=== PATIENT | female | born 1985 ===

== ENCOUNTER 2022-01-05 13:54 | Inpatient (IN) ==
[2022-01-05] MEDS ORDERED: ONDANSETRON 4 MG/2 ML VIAL IV PRN (15:49)
[2022-01-05] MEDS ORDERED: CALCIUM GLUCONATE RIDER 1,000 MG/50 ML PREMIX IV PRN (15:49)
[2022-01-05] MEDS ORDERED: MAGNESIUM SULF RIDER 4 GM/100 ML PREMIX IV ONE (15:49)
[2022-01-05] MEDS ORDERED: METHYLERGONOVINE 0.2 MG/1 ML AMP IM PRN (15:49)
[2022-01-05] MEDS ORDERED: miSOPROStoL 200 MCG TABLET RECTAL PRN (15:49)
[2022-01-05] MEDS ORDERED: CARBOPROST TROMETHAMINE 250 MCG/ML AMP IM PRN (15:49)
[2022-01-05] MEDS ORDERED: TRANEXAMIC ACID 1,000 MG in SODIUM CHLORIDE 0.9% 100 ML IV PRN (15:49)
[2022-01-05] MEDS ORDERED: OXYTOCIN/LR 20 UNIT/1,000 ML BAG IV ONE (15:49)
[2022-01-05] MEDS ORDERED: BUTORPHANOL 2 MG/ML VIAL IV PRN (15:55)
[2022-01-05] MEDS ORDERED: MEPERIDINE 25 MG/1 ML VIAL IV PRN (15:55)
[2022-01-05] MEDS ORDERED: AZITHROMYCIN 250 MG TABLET PO ONE (16:00)
[2022-01-05 16:22] LABS: Basophils % 0.1 % (0.0-0.8); Eosinophils # 0.1 10*3/uL (0.0-0.87); Eosinophils % 0.9 % (0.00-10.9); Hemoglobin 10.9 GM/DL (12.0-16.0); Immature Granulocytes % 0.3 %; Immature Granulocytes Absolute 0.02 #; Lymphocytes # 1.3 10*3/uL (1.4-4.0); Lymphocytes % 19.1 % (21.3-54.2); Mean Corpuscular HGB Conc 32.1 GM/DL (32-36); Mean Corpuscular Volume 81.5 FL (87-102); Monocytes # 0.5 10*3/uL (0.11-0.8); Monocytes % 6.8 % (1.7-12.7); Neutrophils % 72.8 % (38.7-73.9); Platelet Count 221 T/CUMM (130-400); Red Blood Count 4.17 MC/CUMM (3.8-5.5); Red Cell Distribution Width 14.3 % (9.3-17.3); White Blood Count 6.7 T/CUMM (4-12)
[2022-01-05] MEDS: LACTATED RINGERS 1,000 ML IV SCH (16:36)
[2022-01-05] MEDS: BETAMETH SODIUM PHOS/ACETATE 30 MG/5 ML VIAL IM SCH (16:37)
[2022-01-05 16:40] LABS: Alanine Aminotransferase 26 U/L (13-56); Albumin 2.4 G/DL (3.4-5.0); Alkaline Phosphatase 224 U/L (45-117); Aspartate Amino Transferase 20 U/L (0-37); Bilirubin,Total < 0.39 MG/DL (0.20-1.00); Blood Urea Nitrogen 9 MG/DL (7-18); Calcium 8.5 MG/DL (8.5-10.1); Carbon Dioxide 21 MMOL/L (21-32); Chloride 111 MMOL/L (98-107); Glucose 91 MG/DL (74-106); Osmolality,Calculated 277.4 MOS/KG (273-304); Potassium 3.6 MMOL/L (3.5-5.1); Sodium 140 MMOL/L (136-145); Total Protein 6.9 G/DL (6.4-8.2)
[2022-01-05] MEDS: AMPICILLIN INJ 2,000 MG in SODIUM CHLORIDE 0.9% 100 ML IV SCH ×2 (16:40→21:49)
[2022-01-05] MEDS: MAGNESIUM SULF DRIP 40 GM/1,000 ML ML IV SCH (16:46)
[2022-01-05 20:21] LABS: Bilirubin,Urine Negative (Negative); Blood, Urine Negative (Negative); Glucose,Urine (UA) Negative (Negative); Ketones,Urine 20 mg/dL (Negative); Mucus,Urine Occasional /LPF (Occasional); Nitrite,Urine Negative (Negative); Protein,Urine Negative (Negative); RBC,Urine <1 /HPF (0-4); Squamous Epithelial Cell,Urine Occasional /HPF (0-10); Urine Appearance CLEAR (Clear); Urine Color Yellow (Yellow); Urine Specific Gravity 1.015 (1.001-1.035); Urine Urobilinogen < 2.0 eU/dL (<2.0)
[2022-01-05] MEDS: ACETAMINOPHEN 325 MG TABLET PO PRN (23:39)
[2022-01-06] MEDS: AMPICILLIN INJ 2,000 MG in SODIUM CHLORIDE 0.9% 100 ML IV SCH ×4 (04:56→21:42)
[2022-01-06] MEDS: LACTATED RINGERS 1,000 ML IV SCH (04:57)
[2022-01-06] MEDS: MAGNESIUM SULF DRIP 40 GM/1,000 ML ML IV SCH (12:52)
[2022-01-06] MEDS: BETAMETH SODIUM PHOS/ACETATE 30 MG/5 ML VIAL IM SCH (16:25)
[2022-01-06] MEDS: NIFEdipine 10 MG CAPSULE PO SCH ×2 (16:25→21:42)
[2022-01-07] MEDS: AMPICILLIN INJ 2,000 MG in SODIUM CHLORIDE 0.9% 100 ML IV SCH ×2 (03:57→09:33)
[2022-01-07] MEDS: NIFEdipine 10 MG CAPSULE PO SCH ×4 (03:57→21:59)
[2022-01-07] MEDS: LACTATED RINGERS 1,000 ML IV SCH ×3 (07:17→07:18)
[2022-01-07] MEDS: MAGNESIUM SULF DRIP 40 GM/1,000 ML ML IV SCH (07:18)
[2022-01-07] MEDS: AMOXICILLIN 875 MG TABLET PO SCH ×2 (15:54→21:23)
[2022-01-07] MEDS ORDERED: AMOXICILLIN/CLAV 875 MG TABLET PO SCH (18:30)
[2022-01-08] MEDS: NIFEdipine 10 MG CAPSULE PO SCH ×2 (04:22→21:05)
[2022-01-08 05:36] LABS: Basophils % 0.3 % (0.0-0.8); Eosinophils % 0.4 % (0.00-10.9); Hematocrit 31.9 VOL% (35.7-47.0); Hemoglobin 10.4 GM/DL (12.0-16.0); Immature Granulocytes % 0.6 %; Immature Granulocytes Absolute 0.04 #; Lymphocytes # 1.4 10*3/uL (1.4-4.0); Lymphocytes % 20.5 % (21.3-54.2); Mean Corpuscular HGB Conc 32.6 GM/DL (32-36); Mean Corpuscular Volume 80.8 FL (87-102); Mean Platelet Volume 11.1 FL (9.6-12.0); Monocytes # 0.5 10*3/uL (0.11-0.8); Monocytes % 7.4 % (1.7-12.7); Neutrophils % 70.8 % (38.7-73.9); Platelet Count 247 T/CUMM (130-400); Red Blood Count 3.95 MC/CUMM (3.8-5.5); Red Cell Distribution Width 14.5 % (9.3-17.3)
[2022-01-08] MEDS: AMOXICILLIN 875 MG TABLET PO SCH (09:08)
[2022-01-08] MEDS ORDERED: NIFEdipine 10 MG CAPSULE PO ONE (16:45)
[2022-01-08] MEDS: ACETAMINOPHEN 325 MG TABLET PO PRN ×2 (17:31→21:05)
[2022-01-08] MEDS: LACTATED RINGERS 1,000 ML IV SCH (18:44)
[2022-01-08] MEDS ORDERED: diphenhydrAMINE CAP 50 MG CAPSULE PO ONE (20:05)
[2022-01-08] MEDS: AMPICILLIN INJ 2,000 MG in SODIUM CHLORIDE 0.9% 100 ML IV SCH (21:04)
[2022-01-09] MEDS: LACTATED RINGERS 1,000 ML IV SCH ×2 (02:23→08:11)
[2022-01-09] MEDS: NIFEdipine 10 MG CAPSULE PO SCH (02:29)
[2022-01-09] MEDS ORDERED: miSOPROStoL 200 MCG TABLET RECTAL PRN (02:43)
[2022-01-09] MEDS ORDERED: METHYLERGONOVINE 0.2 MG/1 ML AMP IM PRN (02:43)
[2022-01-09] MEDS ORDERED: CARBOPROST TROMETHAMINE 250 MCG/ML AMP IM PRN (02:43)
[2022-01-09] MEDS ORDERED: TRANEXAMIC ACID 1,000 MG in SODIUM CHLORIDE 0.9% 100 ML IV PRN (02:43)
[2022-01-09] MEDS: ACETAMINOPHEN 325 MG TABLET PO PRN (02:55)
[2022-01-09] MEDS: AMPICILLIN INJ 2,000 MG in SODIUM CHLORIDE 0.9% 100 ML IV SCH (02:56)
[2022-01-09 05:34] LABS: Basophils % 0.6 % (0.0-0.8); Eosinophils # 0.1 10*3/uL (0.0-0.87); Eosinophils % 0.7 % (0.00-10.9); Hematocrit 32.4 VOL% (35.7-47.0); Hemoglobin 10.4 GM/DL (12.0-16.0); Immature Granulocytes % 0.4 %; Immature Granulocytes Absolute 0.03 #; Lymphocytes # 1.5 10*3/uL (1.4-4.0); Lymphocytes % 21.1 % (21.3-54.2); Mean Corpuscular HGB Conc 32.1 GM/DL (32-36); Mean Corpuscular Volume 81.8 FL (87-102); Monocytes # 0.6 10*3/uL (0.11-0.8); Monocytes % 8.3 % (1.7-12.7); Neutrophils % 68.9 % (38.7-73.9); Platelet Count 243 T/CUMM (130-400); Red Blood Count 3.96 MC/CUMM (3.8-5.5); Red Cell Distribution Width 14.4 % (9.3-17.3); White Blood Count 7.3 T/CUMM (4-12)
[2022-01-09] MEDS ORDERED: FAMOTIDINE 20 MG/2 ML VIAL IV ONE ×2 (06:22→07:29)
[2022-01-09] MEDS ORDERED: miSOPROStoL 200 MCG TABLET ONE (06:23)
[2022-01-09] MEDS ORDERED: TRANEXAMIC ACID 1,000 MG/10 ML VIAL ONE (06:23)
[2022-01-09] MEDS ORDERED: OXYTOCIN/LR 0 UNIT/0 ML BAG IV ONE (06:24)
[2022-01-09] MEDS ORDERED: SODIUM CHLORIDE 0.9% 0 ML IV ONE (06:24)
[2022-01-09] MEDS ORDERED: CARBOPROST TROMETHAMINE 250 MCG/ML AMP IM ONE (06:24)
[2022-01-09] MEDS ORDERED: METHYLERGONOVINE 0.2 MG/1 ML AMP ONE (06:24)
[2022-01-09] MEDS ORDERED: OXYTOCIN/LR 20 UNIT/1,000 ML BAG IV ONE ×2 (06:30→10:49)
[2022-01-09] MEDS ORDERED: CITRIC ACID/SODIUM CITRATE 30 ML UDCUP PO ONE (06:30)
[2022-01-09] MEDS ORDERED: ceFAZolin 2,000 MG/50 ML DUPLEX IV ONE (06:30)
[2022-01-09] MEDS ORDERED: ceFAZolin 3,000 MG in SYRINGE 1 EACH IV ONE (07:18)
[2022-01-09] MEDS ORDERED: OXYTOCIN/LR 30 UNIT/1,000 ML BAG IV ONE (07:34)
[2022-01-09] MEDS ORDERED: PHENYLEPHRINE 1 MG/10 ML SYRINGE IV ONE (08:12)
[2022-01-09] MEDS ORDERED: BUPIVACAINE SPINAL 0.75% 2 ML AMP SPINAL ONE (08:12)
[2022-01-09] MEDS ORDERED: ONDANSETRON 4 MG/2 ML VIAL ONE (08:12)
[2022-01-09] MEDS ORDERED: buprenorphine HCL 0.3 MG/ML VIAL ONE (08:12)
[2022-01-09] MEDS ORDERED: ACETAMINOPHEN INJ 1,000 MG/100 ML VIAL IV ONE (10:09)
[2022-01-09] MEDS ORDERED: KETOROLAC 30 MG/1 ML VIAL ONE (10:09)
[2022-01-09] MEDS ORDERED: MIDAZOLAM 2 MG/2 ML VIAL ONE (10:17)
[2022-01-09 10:21] LABS: Cord Arterial Blood HCO3 22.9 MMOL/L
[2022-01-09 10:24] LABS: Cord Venous Blood HCO3 24.4 MMOL/L; Cord Venous Blood PCO2 43.6 MMHG; Cord Venous Blood PO2 40.5
[2022-01-09] MEDS ORDERED: FUROSEMIDE 20 MG/2 ML VIAL ONE (10:27)
[2022-01-09 10:36] LABS: Bilirubin,Urine Negative (Negative); Blood, Urine Negative (Negative); Glucose,Urine (UA) Negative (Negative); Ketones,Urine Negative (Negative); Mucus,Urine Occasional /LPF (Occasional); Nitrite,Urine Negative (Negative); Protein,Urine Negative (Negative); RBC,Urine <1 /HPF (0-4); Squamous Epithelial Cell,Urine Occasional /HPF (0-10); Urine Appearance CLEAR (Clear); Urine Color Yellow (Yellow); Urine Specific Gravity 1.016 (1.001-1.035)
[2022-01-09] MEDS ORDERED: LABETALOL 20 MG/4 ML SYRINGE IV ONE (10:45)
[2022-01-09] MEDS ORDERED: PROMETHAZINE 25 MG/1 ML VIAL ONE (10:45)
[2022-01-09] MEDS ORDERED: ONDANSETRON 4 MG/2 ML VIAL IV PRN (10:49)
[2022-01-09] MEDS ORDERED: ACETAMINOPHEN 325 MG TABLET PO PRN (10:49)
[2022-01-09] MEDS ORDERED: RHO(D) IMMUNE GLOBULIN 300 MCG SYRINGE IM ONE (10:49)
[2022-01-09] MEDS ORDERED: LACTATED RINGERS 1,000 ML IV SCH (11:00)
[2022-01-09] MEDS: ACETAMINOPHEN 500 MG TABLET PO SCH ×2 (17:10→21:09)
[2022-01-09] MEDS: KETOROLAC 30 MG/1 ML VIAL IV SCH (17:15)
[2022-01-09] MEDS ORDERED: INFLUENZA VIRUS VACCINE 0.5 ML SYRINGE IM ONE (17:18)
[2022-01-09 18:03] LABS: Basophils % 0.2 % (0.0-0.8); Eosinophils % 0.2 % (0.00-10.9); Hematocrit 33.9 VOL% (35.7-47.0); Hemoglobin 11.1 GM/DL (12.0-16.0); Immature Granulocytes % 0.5 %; Immature Granulocytes Absolute 0.06 #; Lymphocytes # 1.4 10*3/uL (1.4-4.0); Mean Corpuscular HGB Conc 32.7 GM/DL (32-36); Mean Platelet Volume 10.9 FL (9.6-12.0); Monocytes # 0.5 10*3/uL (0.11-0.8); Monocytes % 4.2 % (1.7-12.7); Neutrophils % 83.9 % (38.7-73.9); Platelet Count 224 T/CUMM (130-400); Red Blood Count 4.24 MC/CUMM (3.8-5.5); Red Cell Distribution Width 14.3 % (9.3-17.3); White Blood Count 12.3 T/CUMM (4-12)
[2022-01-09] MEDS ORDERED: NIFEdipine 10 MG CAPSULE PO SCH (21:00)
[2022-01-09] MEDS: DOCUSATE SODIUM 100 MG CAPSULE PO SCH (21:08)
[2022-01-09] MEDS: SIMETHICONE CHEW 80 MG TABLET PO PRN (21:08)
[2022-01-10] MEDS: KETOROLAC 30 MG/1 ML VIAL IV SCH ×2 (01:07→08:58)
[2022-01-10] MEDS: ACETAMINOPHEN 500 MG TABLET PO SCH (05:55)
[2022-01-10 06:11] LABS: Basophils % 0.3 % (0.0-0.8); Eosinophils # 0.1 10*3/uL (0.0-0.87); Eosinophils % 1.2 % (0.00-10.9); Hematocrit 28.7 VOL% (35.7-47.0); Hemoglobin 9.3 GM/DL (12.0-16.0); Immature Granulocytes % 0.3 %; Immature Granulocytes Absolute 0.03 #; Lymphocytes # 1.6 10*3/uL (1.4-4.0); Lymphocytes % 18.1 % (21.3-54.2); Mean Corpuscular HGB Conc 32.4 GM/DL (32-36); Mean Corpuscular Volume 81.1 FL (87-102); Mean Platelet Volume 10.9 FL (9.6-12.0); Monocytes # 0.6 10*3/uL (0.11-0.8); Monocytes % 6.6 % (1.7-12.7); Neutrophils % 73.5 % (38.7-73.9); Platelet Count 215 T/CUMM (130-400); Red Blood Count 3.54 MC/CUMM (3.8-5.5); Red Cell Distribution Width 14.3 % (9.3-17.3); White Blood Count 8.7 T/CUMM (4-12)
[2022-01-10] MEDS: MAGNESIUM HYDROXIDE SUSP 30 ML UDCUP PO PRN ×2 (08:58→21:00)
[2022-01-10] MEDS: FERROUS SULFATE 325 MG TABLET PO SCH ×2 (08:58→21:00)
[2022-01-10] MEDS: MULTIVITAMIN (PRENATAL) TABLET PO SCH (08:58)
[2022-01-10] MEDS: DOCUSATE SODIUM 100 MG CAPSULE PO SCH ×2 (08:59→21:00)
[2022-01-10] MEDS: IBUPROFEN 800 MG TABLET PO PRN (16:33)
[2022-01-10] MEDS: SIMETHICONE CHEW 80 MG TABLET PO PRN (21:00)
[2022-01-11] MEDS: IBUPROFEN 800 MG TABLET PO PRN (01:49)
[2022-01-11 05:46] LABS: Basophils % 0.2 % (0.0-0.8); Eosinophils # 0.2 10*3/uL (0.0-0.87); Eosinophils % 2.1 % (0.00-10.9); Hematocrit 30.1 VOL% (35.7-47.0); Hemoglobin 9.7 GM/DL (12.0-16.0); Immature Granulocytes % 0.7 %; Immature Granulocytes Absolute 0.06 #; Lymphocytes # 1.6 10*3/uL (1.4-4.0); Lymphocytes % 17.6 % (21.3-54.2); Mean Corpuscular HGB Conc 32.2 GM/DL (32-36); Mean Corpuscular Volume 80.9 FL (87-102); Mean Platelet Volume 10.6 FL (9.6-12.0); Monocytes # 0.6 10*3/uL (0.11-0.8); Monocytes % 6.9 % (1.7-12.7); Neutrophils % 72.5 % (38.7-73.9); Platelet Count 230 T/CUMM (130-400); Red Blood Count 3.72 MC/CUMM (3.8-5.5); Red Cell Distribution Width 14.3 % (9.3-17.3); White Blood Count 9.2 T/CUMM (4-12)
[2022-01-11] MEDS: FERROUS SULFATE 325 MG TABLET PO SCH (08:49)
[2022-01-11] MEDS: MULTIVITAMIN (PRENATAL) TABLET PO SCH (08:49)
[2022-01-11] MEDS: DOCUSATE SODIUM 100 MG CAPSULE PO SCH (08:49)
[2022-01-11] MEDS: MAGNESIUM HYDROXIDE SUSP 30 ML UDCUP PO PRN (08:49)
[2022-01-11 10:50] VITALS: BP 144/82
[2022-01-11] MEDS ORDERED: INFLUENZA VIRUS VACCINE 0.5 ML SYRINGE IM ONE (11:44)
== END 2022-01-11 14:00 | disposition home or self-care (01) | DRG 785 ==
LOC: N.LDOUT 13:54 → N.LD 13:59 → N.OB 01-09 13:46
PROVIDERS: ADMIT Obstetrics & Gynecology; ATTEND Obstetrics & Gynecology
PROC: LDCSECT (ICD-10-PCS; 2022-01-09 08:30)